=== PATIENT | female | born 1970 | race Asian ===

== ENCOUNTER → 2021-09-09 | Day surgery (SDC) | payer BC | LOC: CSHMAMMO 07:40 | PROVIDERS: ATTEND Obstetrics & Gynecology | PROC: 0H9U3ZX Drainage of Left Breast, Percutaneous Approach, Diagnostic (ICD-10-PCS; principal; 2021-09-09) | DX: N60.32 Fibrosclerosis of left breast (principal); N60.22 Fibroadenosis of left breast; N62 Hypertrophy of breast | CPT/HCPCS: 19081; 76098; 88305 ==

== ENCOUNTER 2023-08-03 15:01 | Emergency (ER) | payer BC ==
[2023-08-03 16:10] LABS: #Eosinphils 0.1 10x3/uL (0.0-0.5); #Monocytes 0.5 10x3/uL (0.0-1.1); #Neutrophils 3.7 10x3/uL (1.5-8.4); %Basophils 0.6 % (0.0-2.0); %Eosinophils 1.5 % (0.0-6.0); %Lymphocytes 39.9 % (18.0-47.0); %Monocytes 7.1 % (0.0-10.0); %Neutrophils 50.8 % (40.0-75.0); Hematocrit 38.2 % (34.9-44.5); Hemoglobin 12.6 g/dL (12.0-15.5); Mean Corpuscular Hemoglobin 29.1 pg (27.0-33.0); Mean Corpuscular Volume 88.2 fl (81.6-98.3); Platelet Count 238 10x3/uL (150-450); RBC Distribution Width 12.9 % (11.5-14.5); Red Blood Cell (RBC) Count 4.33 10x6/uL (3.90-5.03); White Blood Cell (WBC) Count 7.2 10x3/uL (3.5-10.5)
[2023-08-03 16:23] LABS: ALT (SGPT) 16 U/L (8-55); AST (SGOT) 14 U/L (5-34); Albumin 4.4 g/dL (3.5-5.0); Alkaline Phosphatase 154 U/L (40-110); Anion Gap 10 mmol/L (10-20); BUN (Urea Nitrogen) 10 mg/dL (9.8-20.1); Bilirubin, Total 0.2 mg/dL (0.2-1.2); Calc. Creatinine Clearance 0 mL/min (70-130); Calcium 10.2 mg/dL (7.8-10.44); Carbon Dioxide 23 mmol/L (22-29); Chloride 112 mmol/L (98-107); Estimated GFR 100; Globulin 2.9 g/dL (2.4-3.5); Glucose 94 mg/dL (70-105); Lipase 20 U/L (8-78); Magnesium 2.1 mg/dL (1.6-2.6); Potassium 3.9 mmol/L (3.5-5.1); Protein, Total 7.3 g/dL (6.0-8.3); Sodium 141 mmol/L (136-145)
[2023-08-03 16:24] LABS: Troponin I Less than 0.010 ng/mL (< 0.028)
[2023-08-03] MEDS ORDERED: Aspirin Chewable 81 MG TAB ONE (17:03)
[2023-08-03 18:10] LABS: Troponin I Less than 0.010 ng/mL (< 0.028)
== END 2023-08-03 18:23 | disposition home or self-care (01) ==
LOC: CSHERS 15:01
DX: R07.2 Precordial pain (principal); R42 Dizziness and giddiness
CPT/HCPCS: 36415; 71045; 80053; 83690; 83735; 84484; 85025; 93005

== ENCOUNTER 2023-10-18 09:34 | Outpatient (CLI) | payer BC | END 2023-10-18 09:35 | disposition home or self-care (01) | LOC: CSHMAMMO 09:34 | PROVIDERS: ATTEND Internal Medicine | DX: Z12.31 Encounter for screening mammogram for malignant neoplasm of breast (principal) | CPT/HCPCS: 77063; 77067 ==

== ENCOUNTER 2025-01-31 08:09 | Outpatient (CLI) | payer BC | END 2025-01-31 08:10 | disposition home or self-care (01) | LOC: CSHMAMMO 08:09 | PROVIDERS: ATTEND Internal Medicine | DX: Z12.31 Encounter for screening mammogram for malignant neoplasm of breast (principal) | CPT/HCPCS: 77063; 77067 ==